=== PATIENT | male | born 1990 | race Caucasian/White ===

== ENCOUNTER 2020-04-15 16:12 | Emergency (ER) | payer MEDICAID ==
[~2020-04-15] VITALS: Ht 190.5 cm; Wt 136.4 kg
[~2020-04-15 16:12] MED LIST: AMOX-422 PO; HYDR-3965 PO
[2020-04-15 17:33] VITALS: BP 143/105
--- NOTE | 2020-04-15 18:48 | NUR ---
Dressing removed, wound repacked by . Dressing reapplied with sterile gauze and foam tape. MD instructed patient to keep wound clean and dry and to follow up with wound care on Friday.
== END 2020-04-15 19:14 | disposition home or self-care (01) ==
LOC: ER 16:12
DX: T81.89XD Other complications of procedures, not elsewhere classified, subsequent encounter (principal); Z48.01 Encounter for change or removal of surgical wound dressing; Z79.2 Long term (current) use of antibiotics; Z79.899 Other long term (current) drug therapy; X58.XXXD Exposure to other specified factors, subsequent encounter
CPT/HCPCS: 99282

== ENCOUNTER → 2020-05-02 | Outpatient (CLI) | payer MEDICAID ==
[~2020-05-02] MED LIST changes: +LIDOcaine 4% (40 mg/ml) topical solution 50ml ONE
== END | disposition home or self-care (01) ==
LOC: WOUND CARE 08:37
PROVIDERS: ATTEND Nurse Practitioner
DX: T81.89XD Other complications of procedures, not elsewhere classified, subsequent encounter (principal); L98.492 Non-pressure chronic ulcer of skin of other sites with fat layer exposed; F10.129 Alcohol abuse with intoxication, unspecified; E07.9 Disorder of thyroid, unspecified; E66.01 Morbid (severe) obesity due to excess calories; E87.6 Hypokalemia; Z68.41 Body mass index [BMI] 40.0-44.9, adult; Z79.2 Long term (current) use of antibiotics; Z79.899 Other long term (current) drug therapy; Y83.8 Other surgical procedures as the cause of abnormal reaction of the patient, or of later complication, without mention of misadventure at the time of the procedure; Y35.0 Legal intervention involving firearm discharge
CPT/HCPCS: 11042

== ENCOUNTER 2023-07-24 15:18 | Emergency (ER) | payer MEDICAID ==
[~2023-07-24] VITALS: Ht 188 cm; Wt 127.3 kg
[2023-07-24 15:23] VITALS: BP 129/84
[2023-07-24 16:42] VITALS: PULSE 80; RESP 17; TEMP 99.5; O2SAT 98
== END 2023-07-24 16:44 | disposition home or self-care (01) ==
LOC: ER 15:18
DX: S52.372A Galeazzi's fracture of left radius, initial encounter for closed fracture (principal); V00.131A Fall from skateboard, initial encounter; Y93.89 Activity, other specified; Y92.89 Other specified places as the place of occurrence of the external cause; Y99.8 Other external cause status
CPT/HCPCS: 29125; 73090; 73110; 99284